=== PATIENT | female | born 1980 | race Caucasian/White ===

== ENCOUNTER → 2016-11-27 | Outpatient (CLI) | payer BC | END | disposition home or self-care (01) | LOC: C.PAPS 08:21 | PROVIDERS: ATTEND Obstetrics & Gynecology | DX: Z01.419 Encounter for gynecological examination (general) (routine) without abnormal findings (principal) ==

== ENCOUNTER 2021-03-25 02:32 | Inpatient (IN) ==
--- NOTE | 2021-03-25 02:40 | History & Physical Report ---
Date of Service March 25, 2021 Assessment & Plan (1) Desires (vaginal after ) trial: (2) 39 weeks gestation of : Plan: no evid of active labor. will allow to ambulate. fhts categ 1. History of Present Illness Chief Complaint: regular ctx Primary Care Provider: Shanelle Hirsch MD 40yo at 39+wks egsteven presents to L&D with cc of concern of labor, planned . Patient notes ctx closer and stronger q 5min. No rom, no vb. +FM PNC c/b 1. SMA carrier, FOB neg 2. velamentous cord insertion--growth us monthly 3. prior c/s for breech, baby #2 4. GDM PNL rh pos, ri, gbs neg OBH: x 1, breech x 1 GYNH: nl paps, no stds Allergies Allergy/AdvReac Type Severity Reaction Status Date / Time No Known Allergies Allergy Verified 03/23/21 10:11 Home Medications Medication Instructions Recorded Confirmed Type prenat.vits,vikki,cai-gega-vzcru 1 tab PO DAILY 08/24/20 03/23/21 History acetone (urine) test (Ketone Urine #50 ea 10/24/20 03/21/21 Rx Test) blood sugar diagnostic (OneTouch #150 ea 10/24/20 03/21/21 Rx Verio test strips) blood-glucose meter (OneTouch #1 ea 10/24/20 03/21/21 Rx Verio Flex meter) lancets 33 gauge (OneTouch Delica #150 ea 10/24/20 03/21/21 Rx Plus Lancet) cholecalciferol (vitamin D3) 25 25 mcg PO DAILY 03/23/21 03/23/21 History mcg (1,000 unit) chewable tablet (Vitamin D3) Patient History Medical History Asthma no current issues Depression Gestational diabetes diet controlled Migraine Surgical History H/O section H/O tooth extraction Family History Uncle Colorectal cancer Diabetes Hypertension Cardiac disorder Aunt Colorectal cancer Diabetes Hypertension Cardiac disorder Father Diabetes Hypertension Cardiac disorder Grandfather (Maternal) Myocardial infarction Mother Hypertension Anxiety Denies family history of Ovarian cancer Prostate cancer Breast cancer Social History Smoking Status: Never smoker Second Hand Exposure: No; Hx Alcohol Use: No Hx Substance Use: No Preferred Language: Romansh Communication Ability: Effective Visual Impairment: No Limitations Hearing Ability: Normal Deblocker Required: No Beliefs That Will Affect Care: None marital status: marital status details: Umair Cyr (37) [phone] Current Living Situation: Spouse Current Living Situation Comment: lives with spouse, 2 children, no pets current occupational status: employed 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 Other Information That Helps Us Care for You: No Feels Safe at Home: Yes Safety Concerns: Feels Safe At This Time Childhood Exposure to Second-Hand Smoke: No Dental Care, Regularly: Yes Physical Activity Frequency: Daily Seatbelt Use: always Sunscreen Use: Yes Assistive Devices: Contacts and Glasses Review of Systems as per Subjective / HPI Physical Exam Constitutional: WD/WN, vitals as above Gastrointestinal (Abdomen): soft gravid nt Neurologic: grossly normal Psychiatric: A+Ox3, euthymic affect Genitourinary: Manual OB Exam: + cervical dilation 4 cm, + cervical effacement 90% and + station -2 OB Exam Monitor Tracing: + external FHT monitor used, + external uterine monitor used (? trace well, palpated per nurse), + category I and + normal FHT variability Coding Level of Care Code None Diagnoses Desires (vaginal after ) trial O34.219 39 weeks gestation of Z3A.39
[2021-03-25] MEDS: LACTATED RINGER'S 1,000 ML IV PRN ×2 (05:50→07:46)
[2021-03-25] MEDS ORDERED: OXYTOCIN 30 UNITS/500 ML BAG IV PRN ×2 (05:53→08:58)
[2021-03-25] MEDS ORDERED: ePHEDrine sulfate 50 MG/ML AMP ONE (06:04)
[2021-03-25] MEDS ORDERED: SODIUM CHLORIDE 0.9% INJ 10 ML VIAL ONE (06:04)
[2021-03-25] MEDS ORDERED: fentaNYL citrate 100 MCG/2 ML VIAL ONE (06:05)
[2021-03-25] MEDS ORDERED: fentaNYL 2MCG/ML ROPIVACAINE 1.25MG/ML 100 ML BAG EPI ONE (06:05)
[2021-03-25] MEDS ORDERED: BUPIVACAINE 0.25% 30 ML VIAL ONE (06:05)
[2021-03-25] MEDS ORDERED: PROMETHAZINE HCL 6.25 MG in SODIUM CHLORIDE 0.9% 50 ML IV PRN (06:27)
[2021-03-25] MEDS ORDERED: ONDANSETRON INJ 2 MG/ML 2 ML VIAL IV PRN (06:27)
[2021-03-25] MEDS ORDERED: fentaNYL 2MCG/ML ROPIVACAINE 1.25MG/ML 100 ML BAG EPI PRN (06:27)
[2021-03-25] MEDS ORDERED: NALBUPHINE HCL INJ 10 MG/ML AMP IV PRN (06:27)
[2021-03-25] MEDS ORDERED: diphenhydrAMINE 50 MG/ML VIAL IV PRN (06:27)
[2021-03-25] MEDS ORDERED: ePHEDrine sulfate 50 MG/ML AMP IV PRN (06:27)
[2021-03-25] MEDS ORDERED: NALOXONE HCL 1 MG in SODIUM CHLORIDE 0.9% 1000ML 1,000 ML IV PRN (06:27)
[2021-03-25] MEDS ORDERED: NALOXONE HCL 0.4 MG/1 ML VIAL/CARP IV PRN (06:27)
--- NOTE | 2021-03-25 06:30 | Anesthesiology Consultation ---
Date of Service March 25, 2021 Assessment & Plan Chart Review Chart Review: Patient NOT seen in Pre Admission Testing and Acceptable Risk for Labor Epidural Consults Requested none ASA ASA2 Proposed Anesthesia Anesthesia Type: Labor Epidural Risk / Benefits Reviewed With: PT / POA / Parent / Guardian, Accepts Plan and Informed Consent Obtained History Height/Weight Height: 5 ft 9 in Weight: 92.986 kg Allergies Allergy/AdvReac Type Severity Reaction Status Date / Time No Known Allergies Allergy Verified 03/23/21 10:11 Medications Home Medications Medication Instructions Recorded Confirmed Last Taken prenat.vits,vikki,vob-omzk-gvehi 1 tab PO DAILY 08/24/20 03/25/21 03/24/21 acetone (urine) test (Ketone Urine #50 ea 10/24/20 03/21/21 Unknown Test) blood sugar diagnostic (OneTouch #150 ea 10/24/20 03/21/21 Unknown Verio test strips) blood-glucose meter (OneTouch #1 ea 10/24/20 03/21/21 Unknown Verio Flex meter) lancets 33 gauge (OneTouch Delica #150 ea 10/24/20 03/21/21 Unknown Plus Lancet) cholecalciferol (vitamin D3) 25 25 mcg PO DAILY 03/23/21 03/25/21 03/24/21 mcg (1,000 unit) chewable tablet (Vitamin D3) Active Medications Generic Name Dose Route Start Last Admin Trade Name Freq PRN Reason Stop Dose Admin Lactated Ringer's 1,000 mls @ 125 mls/hr 03/25/21 05:53 03/25/21 05:50 Lr IV 03/27/21 05:52 999 mls/hr .Q8H PRN Administration L&D Protocol Protocol Past Medical History Medical History Asthma no current issues Depression Gestational diabetes diet controlled Migraine Exercise / Class Metabolic Activity II 4-5 Yardwork/Stairs/Walk up hill Past Family History Family History Uncle Colorectal cancer Diabetes Hypertension Cardiac disorder Aunt Colorectal cancer Diabetes Hypertension Cardiac disorder Father Diabetes Hypertension Cardiac disorder Grandfather (Maternal) Myocardial infarction Mother Hypertension Anxiety Denies family history of Ovarian cancer Prostate cancer Breast cancer Past Surgical History Surgical History H/O section H/O tooth extraction Past Anesthesia History No Hx of Anesthesia Complications and No Family Hx of Anesthesia Complications History of PONV No Hx of PONV and No Hx of Motion Sickness Social History Smoking Status: Never smoker Hx Alcohol Use: No Hx Substance Use: No substance use type: does not use Physical Exam Vital Signs Last Vital Signs Temp 36.8 C 03/25/21 02:49 Pulse 61 03/25/21 02:49 Resp 18 03/25/21 02:49 BP 137/81 03/25/21 02:49 ENMT Mouth: no dentition abnormality Thyromental Distance: > or= 3.5 Finger Breadths Mallampati Class: II Neck normal visual inspection Respiratory normal respiratory effort Auscultation: lungs clear to auscultation bilaterally Cardiovascular Rate/Rhythm: regular rate and regular rhythm Psychiatric Orientation: alert Testing Laboratory Results 03/25/21 06:04 POC Glucose 94
[2021-03-25 06:38] LABS: Hematocrit (blood only) 36.1 % (37-47); Hemoglobin 12.5 g/dL (12.0-16.0); Mean Corpuscular Hemoglobin 31.3 pg (25-34); Mean Corpuscular Hgb Conc 34.6 g/dL (32-36); Mean Corpuscular Volume 90.5 fL (80-100); Mean Platelet Volume 11.3 fL (7.4-10.4); Platelet Count 172 K/uL (130-400); RDW Coefficient of Variation 13.8 % (11.5-14.5); RDW Standard Deviation 45.3 fL (36.4-46.3); Red Blood Count 3.99 M/uL (4.2-5.4); White Blood Count 9.23 K/uL (4.8-10.8)
--- NOTE | 2021-03-25 07:51 | Labor Progress Brief Note ---
Date of Service March 25, 2021 Subjective pt now comfortable with epidural, ctx increased and was 5-6cm per nurse at last check. Assessment & Plan (1) 39 weeks gestation of : (2) Desires (vaginal after ) trial: Plan: good cx change. fhts categ 1. see how arom helps labor pattern. reviewed again and consent signed and scanned in record from office visit in january. pt aware of risks, benefits and possible use of pitocin and how that can add into risk of uterine rupture. she and partner desire to proceed. aware i am leaving soon and Dr. Monzon coming workday consultant. ?s answered. Admission and Anticipated Discharge Date Admission Date: March 25, 2021 Physical Exam Constitutional: WD/WN, vitals as above Genitourinary: Manual OB Exam: + cervical dilation 7 cm, + cervical effacement 100%, + station -1 and + amniotic fluid (AROM) clear OB Exam Monitor Tracing: + external FHT monitor used, + external uterine monitor used (q5), + category I and + normal FHT variability Results & Data ([facility]) Vital Signs (Past 12 Hours) Vital Signs Temp Pulse Resp BP Pulse Ox 03/25/21 07:44 68 100 03/25/21 07:43 60 118/66 03/25/21 07:39 73 99 03/25/21 07:38 64 105/58 L 03/25/21 07:35 53 L 116/59 L 03/25/21 07:34 55 L 97 03/25/21 07:29 58 L 98 03/25/21 07:28 60 115/64 03/25/21 07:24 64 98 03/25/21 07:23 59 L 115/61 03/25/21 07:19 68 99 03/25/21 07:18 60 114/60 03/25/21 07:14 68 98 03/25/21 07:13 64 118/64 03/25/21 07:09 64 119/62 99 03/25/21 07:04 62 98 03/25/21 07:03 68 121/68 03/25/21 07:00 98.2 F 20 03/25/21 06:59 63 117/67 99 03/25/21 06:54 70 100 03/25/21 06:51 69 131/67 03/25/21 06:49 68 127/68 99 03/25/21 06:47 68 128/71 03/25/21 06:45 68 130/63 03/25/21 06:44 70 120/67 100 03/25/21 06:29 62 99 03/25/21 02:49 98.2 F 61 18 137/81 03/25/21 02:46 61 137/81 Coding Level of Care Code None Diagnoses 39 weeks gestation of Z3A.39 Desires (vaginal after ) trial O34.219
[2021-03-25] MEDS ORDERED: LIDOCAINE 1% LOCAL 20 ML VIAL ONE (08:42)
--- NOTE | 2021-03-25 08:51 | Delivery Summary ---
Vaginal Delivery Summary Date of Service March 25, 2021 Vaginal Delivery Summary and 2nd Degree LAC Patient successfully delivered a was admitted by Dr. Ramirez over the evening and progressed. On arrival economics consultant she was fully dilated and had a strong urge to push she pushed over a total of 3 contractions delivering a baby in occiput anterior position fluid was clear there was no nuchal cord was gentle traction on the baby and no excessive force used live vigorous male infant cord clamped and cut cord gases obtained cord blood obtained. Small second-degree tear repaired with 3-0 Vicryl placenta removed with gentle traction it was noted the patient had a mild velamentous cord insertion and her placenta was removed IV Pitocin started sponge and instrument counts correct estimated blood loss 150 mL [facility] Vaginal Delivery Charge Vaginal Delivery Codes: 77181 global code for the antepartum, delivery, and post- Delivery Type Details: and 2nd Degree LAC Procedure Anesthesia type: Epidural
[2021-03-25] MEDS ORDERED: HYDROCORTISONE ACETATE 25 MG SUPP PR PRN (08:58)
[2021-03-25] MEDS ORDERED: bisacodyL 10 MG SUPP PR PRN (08:58)
[2021-03-25] MEDS ORDERED: ACETAMINOPHEN 325 MG TAB PO PRN (08:58)
[2021-03-25] MEDS ORDERED: SUPERCREAM 0.870% 15 GM JAR EXT PRN (08:58)
[2021-03-25] MEDS ORDERED: BENZOCAINE 20% AER SPR 82.5 GM CAN EXT PRN (08:58)
[2021-03-25] MEDS ORDERED: DIPHTHERIA/TETANUS/PERTUSSIS 0.5 ML SYR/VIAL IM ONE (08:58)
[2021-03-25] MEDS ORDERED: oxyCODONE/ACETAMINOPHEN 5mg/325mg TAB PO PRN (08:58)
[2021-03-25] MEDS ORDERED: IBUPROFEN 600 MG TAB PO PRN (08:58)
[2021-03-25] MEDS ORDERED: NON-FORMULARY MEDICATION (Prenat.Vits,Cal,Min-Iron-Folic tablet) PO SCH (09:00)
[2021-03-25 09:19] LABS: Base Excess Cord Arterial Bld -0.9 mEq/L (-9-1.8); CO2 Cord Arterial Blood 51 mmHg (39.1-73.5); HCO3 Cord Arterial Blood 26 mmol/L (19.7-28.5); PO2 Cord Arterial Blood 21 mmHg (4.1-31.7); pH Cord Arterial Blood 7.32 (7.1-7.38)
[2021-03-25 09:24] LABS: Base Excess Cord Venous Blood 1.1 mEq/L (-7.7-1.9); Cord Venous Blood HCO3 25 mmol/L (18.4-26.8); Cord Venous Blood PCO2 39 mmHg (30.4-57.2); Cord Venous Blood PO2 32 mmHg (14.1-43.3); Cord Venous Blood pH 7.43 (7.20-7.44)
--- NOTE | 2021-03-25 09:26 | Anesthesiology Progress Note ---
Date of Service March 25, 2021 Anesthesia Post Procedure Vital Signs Vital Signs: Temp Pulse Resp BP Pulse Ox 03/25/21 09:17 65 129/62 03/25/21 09:01 59 L 18 143/73 H 03/25/21 08:46 36.7 C 63 18 133/68 03/25/21 08:44 63 99 03/25/21 08:39 68 99 03/25/21 08:34 96 H 89 L 03/25/21 08:29 84 100 03/25/21 08:24 63 100 03/25/21 08:19 64 130/63 100 03/25/21 08:14 62 100 03/25/21 08:09 60 100 03/25/21 08:04 65 111/58 L 100 03/25/21 08:00 18 03/25/21 07:59 58 L 100 03/25/21 07:54 67 100 03/25/21 07:53 62 114/69 03/25/21 07:49 65 99 03/25/21 07:48 63 115/65 03/25/21 07:44 68 100 03/25/21 07:43 60 118/66 03/25/21 07:39 73 99 03/25/21 07:38 64 105/58 L 03/25/21 07:35 53 L 116/59 L 03/25/21 07:34 55 L 97 03/25/21 07:30 20 03/25/21 07:29 58 L 98 03/25/21 07:28 60 115/64 03/25/21 07:24 64 98 03/25/21 07:23 59 L 115/61 03/25/21 07:19 68 99 03/25/21 07:18 60 114/60 03/25/21 07:14 68 98 03/25/21 07:13 64 118/64 03/25/21 07:09 64 119/62 99 03/25/21 07:04 62 98 03/25/21 07:03 68 121/68 03/25/21 07:00 36.8 C 20 03/25/21 06:59 63 117/67 99 03/25/21 06:54 70 100 03/25/21 06:51 69 131/67 03/25/21 06:49 68 127/68 99 03/25/21 06:47 68 128/71 03/25/21 06:45 68 130/63 03/25/21 06:44 70 120/67 100 03/25/21 06:29 62 99 03/25/21 02:49 36.8 C 61 18 137/81 03/25/21 02:46 61 137/81 Transfer of Care Handoff Completed per policy Notes Mental Status: alert / awake / arousable and participated in evaluation Patient Amnestic to Procedure: Yes Nausea / Vomiting: adequately controlled Pain: adequately controlled Airway Patency, RR, SpO2: stable & adequate BP & HR: stable & adequate Hydration State: stable & adequate Anesthetic Complications: no major complications apparent
[2021-03-25 09:28] LABS: Oxygen Sat Cord Arterial Blood < 60.0 % (<60)
--- NOTE | 2021-03-25 12:22 | Anesthesia Procedure Note ---
Date of Service March 25, 2021 Anesthesia Post Epidural Note Vital Signs Vital Signs: Temp Pulse Resp BP Pulse Ox 36.9 C 63 20 111/66 99 03/25/21 10:31 03/25/21 10:46 03/25/21 10:31 03/25/21 10:46 03/25/21 08:44 Notes Mental Status: alert / awake / arousable Nausea / Vomiting: adequately controlled Pain: adequately controlled Airway Patency, RR, SpO2: stable & adequate BP & HR: stable & adequate Hydration State: stable & adequate Neuraxial Anesthesia: was administered and sensory block is resolving Anesthetic Complications: no major complications apparent and Pt Satisfied with anesthetic care Epidural: Removed without complications and With tip intact
[2021-03-25] MEDS: DOCUSATE SODIUM 100 MG CAP PO SCH (20:21)
--- NOTE | 2021-03-26 07:29 | Obstetrical Progress Note ---
Date of Service March 26, 2021 Assessment & Plan (1) state: PPD #1 meets criteria, home Subjective Ambulation: ambulating normally Voiding: no voiding problems Passing Gas:: Yes Diet Tolerance:: regular diet Lochia:: Small Physical Exam ext neg Results & Data ([facility]) Vital Signs (Past 12 Hours) Vital Signs Temp Pulse Resp BP Pulse Ox 03/26/21 03:10 98.1 F 52 L 18 114/73 97 03/26/21 00:00 97.9 F 55 L 18 114/73 97 03/25/21 19:44 98.2 F 59 L 20 104/68
[2021-03-26] MEDS ORDERED: PRENATAL VITAMIN 1 TAB PO SCH (08:00)
[2021-03-26] MEDS: DOCUSATE SODIUM 100 MG CAP PO SCH (08:06)
[2021-03-26] MEDS ORDERED: bisacodyL 5 MG TABEC PO SCH (20:00)
== END 2021-03-26 13:15 | disposition home or self-care (01) | DRG 807 ==
LOC: OPB 02:32 → 4S1 02:34 → 4S2 11:00